=== PATIENT | female | born 1970 | race Caucasian/White ===

== ENCOUNTER 2023-08-21 11:02 | Emergency (ER) | payer MEDICARE, MEDICAID, SELFPAY ==
--- NOTE | ~2023-08-21 | XR_ITS ---
EXAMINATION: XR chest 2V CLINICAL INFORMATION: Shortness of breath COMPARISON: No prior chest x-ray available in our system for comparison at the time of this dictation. TECHNIQUE: XR chest 2V, 2 Views Lungs and [place]: Both lungs are clear. Pleura: Normal. Costophrenic angles are sharp. No pneumothorax. Heart: The heart is normal in size. Mediastinum: The mediastinum is within normal limits.. Bones: Skeletal structures included are normal for patient's age. XR/XR chest 2V IMPRESSION: No radiographic evidence of acute cardiopulmonary disease.
--- NOTE | ~2023-08-21 | CT_ITS ---
EXAMINATION: CT abdomen pelvis w IV con CLINICAL INFORMATION: Reason for Exam abd pain COMPARISON: No prior CT available for comparison. TECHNIQUE: Multidetector volumetric imaging was performed from the superior aspect of the liver through the pubic symphysis 85 mL of Omnipaque 350 injected Sagittal and coronal reformatted images were obtained on the technologist's workstation. This CT examination was performed using dose optimization techniques as appropriate, variously including the following: *Automated exposure control *Adjustment of mA and/or kV according to patient size (this includes techniques or standardized protocols for targeted exams where dose is matched to indication/reason for exam; i.e. extremities or head) *Use of iterative reconstruction technique DLP: 576 mGy-cm FINDINGS: LOWER THORAX: Included lung bases are clear. HEPATOBILIARY: There is hypodense structure in the right lobe of the liver segment 6 measures 1.8 x 1.7 cm not well characterized due to lack of contrast, could be a hemangioma versus other liver lesions. GALLBLADDER: Gallbladder unremarkable. SPLEEN: Spleen is normal in size. PANCREAS: No focal mass or ductal dilatation. STOMACH AND GASTROINTESTINAL TRACT: Stomach is grossly unremarkable. There is no bowel distention or thickening. No CT evidence of appendicitis. ADRENALS: No adrenal nodules. KIDNEYS/URETERS: There is a simple cyst left kidney 3.1 cm Bosniak class I, almost certainly benign, no follow-up recommended. URINARY BLADDER: Partially decompressed. PELVIC VISCERA: There is a complex soft tissue mass arising from or abutting the sigmoid colon and uterus measures 7.7 x 3.8 cm x 6.5 concerning for possible neoplasm which may have arise from the sigmoid colon or from the uterus versus less likely infection inflammatory process. There is mild surrounding fat stranding. PERITONEUM: No free air or fluid LYMPH NODES: Few mildly prominent mesenteric lymph nodes. No bulky adenopathy. Mildly enlarged preaortic lymph node 1 x 1.1 cm. VASCULAR:Abdominal aorta normal in size, no aneurysm found. BONES, ABDOMINAL WALL AND SOFT TISSUES: Age-appropriate changes of the spine and skeletal system, no destructive osteolytic or osteosclerotic bone lesion found CT/CT abdomen pelvis w IV con IMPRESSION: 1. There is a complex soft tissue mass arising from or abutting the sigmoid colon and uterus, roughly measures 7.7 x 3.8 x 6.5 cm concerning for possible neoplasm which may have arise from the SIGMOID COLON ADENOCARCINOMA VERSUS FROM THE UTERUS versus. No evidence of bowel obstruction. There is surrounding mild fat stranding suggesting serosal penetration. Recommended GI consultation, colonoscopy may be utilized for tissue biopsy. 2. Mildly enlarged preaortic lymph node 1 x 1.1 cm. 3. Hypodense structure in the right lobe of the liver segment 6 measures 1.8 cm not well characterized due to lack of contrast, could be a hemangioma versus other liver neoplastic lesions primary or metastatic. (Referring physician staff is being called, by physician staff assistance, to be alerted of the above critical findings and recommendations.) 08/21/2023 3:30 PM
[2023-08-21 11:47] VITALS: BP 134/81; PULSE 90; RESP 18; TEMP 37.1; O2SAT 97; BMI 36.2
--- NOTE | 2023-08-21 11:48 | ED.GENADULT ---
HPI - General Adult General Chief complaint: General Medical Stated complaint: SOB, fever Time Seen by Provider: 08/21/23 12:53 Source: patient Mode of arrival: ambulatory Limitations: no limitations History of Present Illness ED Provider: Adela Obrien PA-C HPI narrative: Patient is a 52 year old assigned female at with a history of DM presenting to the emergency department today with right sided flank pain, nausea, vomiting, and diarrhea. Patient states that over the last few months she has been having intermittent right sided flank pain, nausea, vomiting, and diarrhea. Patient states that she has been under a lot of pressure in her personal life and has not been managing her sugars effectively. Patient denies any dizziness, lightheadedness, blurry vision, double vision, loss of vision, chest pain, difficulty breathing, shortness of breath, back pain, night sweats, pain with urination, increased urinary frequency, increased urinary urgency, blood in her urine or stool, syncope or a near syncopal episode, recent trauma or falls, bowel incontinence, bladder incontinence, bowel retention, bladder retention, or any other complaints at this time. Onset (ago): month(s) Relieving factors: none Exacerbating factors: none Associated symptoms: fever/chills and nausea/vomiting Treatments prior to arrival: none Related Data Previous Rx's ?Medication ?Instructions ?Recorded cefuroxime axetil 250 mg tablet 250 mg PO BID 7 days #14 tabs 08/21/23 Allergies Allergy/AdvReac Type Severity Reaction Status Date / Time No Known Allergies Allergy Verified 08/21/23 11:51 Review of Systems Constitutional: Constitutional: Reports no additional constitutional complaints, Reports chills, Reports fever(s) and Denies night sweats Eyes: Eyes: Reports no additional eye complaints, Denies blurry vision, Denies change in vision, Denies diplopia, Denies eye discharge, Denies loss of vision and Denies eye pain ENT: Denies dizziness Cardiovascular: Cardiovascular: Reports no additional cardiovascular complaints, Denies chest pain, Denies lightheadedness, Denies Loss of Consciousness and Denies dyspnea Respiratory: Respiratory: Reports no additional respiratory complaints and Denies dyspnea Gastrointestinal: Gastrointestinal: Reports no additional gastrointestinal complaints, Reports abdominal pain, Denies melena, Denies hematochezia, Denies change in bowel habits, Denies change in stool character, Reports nausea and Reports vomiting Genitourinary: Genitourinary: Denies hematuria, Denies urinary frequency, Denies dysuria, Denies urinary incontinence, Denies urinary hesitancy and Denies urinary urgency Musculoskeletal: Musculoskeletal: Reports no additional musculoskeletal complaints, Denies numbness and Denies tingling Neurologic: Denies dizziness, Denies loss of vision, Denies numbness and Denies tingling Psychiatric: Psychiatric: Reports no additional psychiatric complaints Endocrine: Endocrine: Reports no additional endocrine complaints Hematologic/Lymphatic: Hematologic/Lymphatic: Reports no additional hematologic/lymphatic complaints Allergic/Immunologic: Allergic/Immunologic: Reports no additional allergic/immunologic complaints [facility] Past Medical History Attestation statement: The following information was validated with the patient. Source: old records reviewed and nursing notes reviewed Social History Social History Advance Directives: No Advance Directives Information Provided: Yes Physical Exam ED Vital Signs: Vital Signs - 24 hr 08/21/23 11:47 08/21/23 14:49 Temperature 98.8 F 98.4 F Pulse Rate 90 86 Respiratory Rate 18 18 Blood Pressure 134/81 122/62 Pulse Oximetry 97 97 Oxygen Delivery Method Room Air Room Air BMI result Body Mass Index 36.2 Const General: cooperative, no acute distress, alert and awake Nutritional Appearance: well nourished Orientation/consciousness: patient oriented x3 Limitations: no limitations HENMT Head: Yes normal to inspection and Yes atraumatic Ears: hearing grossly normal bilaterally and external ears normal General nose exam: Normal external nose present, no nasal discharge noted and no epistaxis Face and sinus: Yes normal facial exam, No abrasion and No laceration Mouth: Normal oral and palatal mucosa present, no drooling and no muffled voice Eyes General: appearance normal, both eyes and all related structures Periorbital: periorbital findings normal Eyelids: Yes eyelids normal Conjunctivae: conjunctivae normal Pupils: Equal, round and reactive pupils present EOM: EOMs intact bilaterally Neck Neck: Yes normal visual inspection, Yes full ROM and Yes no lymphadenopathy Chest Chest palpation & inspection: normal inspection of the chest Resp Effort & Inspection: normal respiratory effort and able to speak in complete sentences GI Inspection: Yes normal to inspection Palpation (GI): Soft to palpation, not firm, nontender and no guarding Neuro General: patient oriented x3 and moves all extremities Cranial nerves: Yes Equal, round and reactive pupils present Cognition (Neuro): normal cognition Motor exam (neuro): 5/5 motor strength present throughout Sensory Exam: Normal double simultaneous stimulation for sensation Coordination: [id number] test normal Extrem General: Yes normal to inspection, Yes full ROM and Yes capillary refill normal Psych Appearance: grossly normal Mental Status: mental status grossly normal Affect: normal affect Attitude: cooperative Thought process: Normal thought process present Thought content: Normal thought content present Insight: Good insight present (Psych) Course Course Course Narrative: RME- 52 year old female presents for evaluation of fevers for the last few months. She reports associated shortness of breath and diarrhea. Patient also endorses bloody stool for which she is being worked up for including a scheduled colonoscopy. Plan for labs including blood cultures, chest x-ray and viral swabs Medications Administered Discontinued Medications Generic Name Dose Route Start Last Admin Trade Name Freq PRN Reason Stop Dose Admin Ceftriaxone Sodium 1 gm/ 50 mls @ 100 mls/hr 08/21/23 14:01 08/21/23 14:47 Sodium Chloride IV 08/21/23 14:30 100 mls/hr ONCE ONE Administration Iohexol 85 ml 08/21/23 13:54 08/21/23 13:54 Iohexol 350 Mg/Ml 75 Ml Infus..Btl IV 08/21/23 13:55 85 ml ONCE ONE Administration Medical Decision Making Medical Decision Making [facility] Narrative: Patient is a 52 year old assigned female at with a history of DM presenting to the emergency department today with nausea, vomiting, diarrhea, intermittent abdominal pain, subjective fevers, and chills. Patient's physical exam was unremarkable. Patient's blood work was unremarkable. Patient's urine showed an acute infection. Patient's abdomen/pelvis CT showed a complex soft tissue mass arising from or abutting the sigmoid colon and uterus. Rad recommends GI follow up to further diagnose the mass. I explained my physical exam findings as well as all test results to the patient. I answered all questions asked by the patient. I stressed the importance of the patient taking her medication as prescribed. I stressed the importance of the patient following up with her primary care provider and a GI specialist. I stressed the importance of the patient returning to the emergency department immediately if her symptoms were to worsen or if she were to develop any dizziness, shortness of breath, difficulty breathing, chest pain, blurry vision, loss of vision, nausea, vomiting, abdominal pain, fever, chills, back pain, or any other complaints. Patient verbalized agreement and understanding with this treatment plan and discharge. Differential Diagnosis Differential Diagnoses: The differential diagnosis associated with the presentation includes Abdominal mass Colon cancer Uterine cancer UTI Admission/Observation Consideration of admission/observation: Escalation of care including admission/observation considered Patient would have been admitted to the hospital had her work up had any findings where hospital admission was appropriate and her clinical presentation warranted hospital admission. Lab Data [facility] Lab Attestation statement: I reviewed the patient's lab results. My interpretation of these results are in the [facility] Rationale portion of this note. 08/21/23 12:58 08/21/23 12:58 Labs: Lab Results 08/21/23 08/21/23 Range/Units 12:58 13:39 WBC 8.0 (4.8-10.8) X10*3/uL RBC 4.37 (4.20-5.50) X10*6/uL Hgb 10.0 L (12.0-16.0) g/dl Hct 31.6 L (37.0-47.0) % MCV 72.3 L (80.0-98.0) fL MCH 22.9 L (27.0-33.0) pg MCHC 31.6 (31.0-35.0) g/dl RDW 15.5 (11.0-16.0) % Plt Count 504 H (160-400) X10*3/uL MPV 8.6 L (9.4-12.3) fL Immature Gran % (Auto) 0.4 (0.0-0.4) % Neut % (Auto) 82.4 H (45-73) % Lymph % (Auto) 10.8 L (20-40) % [place] % (Auto) 5.6 (2-11) % Eos % (Auto) 0.4 (0-4) % Baso % (Auto) 0.4 (0-2) % Lymph # (Auto) 0.9 L (1.2-4.9) X10*3/uL [place] # (Auto) 0.5 (0.1-1.2) X10*3/uL Eos # (Auto) 0.0 (0.0-0.4) X10*3/uL Baso # (Auto) 0.0 (0.0-0.2) X10*3/uL Abs Immat Gran (auto) 0.03 (0.00-0.03) X10*3/uL Absolute Neuts (auto) 6.6 (2.0-8.3) x10*3/uL Absolute Nucleated RBC 0.000 (0.0-0.012) X10*3/uL Nucleated RBC % (auto) 0.0 (0.0-0.2) /100WBC Sodium 133 L (135-145) mmol/L Potassium 3.8 (3.3-5.1) mmol/L Chloride 99 (96-108) mmol/L Carbon Dioxide 24 (22-29) mmol/L Anion Gap 14 (12-20) BUN 14 (9-16) mg/dL Creatinine 0.83 (0.5-1.4) mg/dL Estim Creat Clear Calc 81.5 Estimated GFR > 60 Random Glucose 131 H (60-115) mg/dL Lactic Acid 0.8 (0.5-2.0) mmol/L Calcium 9.5 (8.4-10.2) mg/dL Total Bilirubin 0.4 (0.0-1.0) mg/dL AST 15 (5-31) U/L ALT 10 (0-31) U/L Alkaline Phosphatase 65 (39-117) U/L Total Protein 8.4 H (6.5-8.0) g/dL Albumin 3.9 (3.5-5.0) g/dL Lipase 15 (8-78) U/L Urine Color Dark Yellow Urine Appearance Turbid Urine pH 5.0 (5.0-9.0) Ur Specific [place] >= 1.030 H (1.005-1.025) Urine Protein 100 (2+) H (Neg-Trace) mg/dL Urine Glucose (UA) Negative (Negative) mg/dL Urine Ketones Trace (Negative) mg/dL Urine Blood Trace H (Negative) Urine Nitrite Negative (Negative) Ur Leukocyte Esterase Moderate (2+) H (Negative) Urine RBC 6-10 H (0-2) /HPF Urine WBC >50 H (0-5) /HPF Ur Squamous Epith Cells 6-10 (0-2) /HPF Urine Bacteria 4+ (None Seen) Hyaline Casts >20 (0-2) /LPF Influenza Type A (PCR) NEGATIVE (Negative) Influenza Type B (PCR) NEGATIVE (Negative) RSV RNA Qual (PCR) NEGATIVE (Negative) SARS-CoV-2 RNA (RT-PCR) NEGATIVE (Negative) Independent Interpretation I performed an independent interpretation of an: CT Scan Interpretation: My interpretation is in agreement with the radiologist's impression of this imaging study. EXAMINATION: CT abdomen pelvis w IV con CLINICAL INFORMATION: Reason for Exam abd pain COMPARISON: No prior CT available for comparison. TECHNIQUE: Multidetector volumetric imaging was performed from the superior aspect of the liver through the pubic symphysis 85 mL of Omnipaque 350 injected Sagittal and coronal reformatted images were obtained on the technologist's workstation. This CT examination was performed using dose optimization techniques as appropriate, variously including the following: *Automated exposure control *Adjustment of mA and/or kV according to patient size (this includes techniques or standardized protocols for targeted exams where dose is matched to indication/reason for exam; i.e. extremities or head) *Use of iterative reconstruction technique DLP: 576 mGy-cm FINDINGS: LOWER THORAX: Included lung bases are clear. HEPATOBILIARY: There is hypodense structure in the right lobe of the liver segment 6 measures 1.8 x 1.7 cm not well characterized due to lack of contrast, could be a hemangioma versus other liver lesions. GALLBLADDER: Gallbladder unremarkable. SPLEEN: Spleen is normal in size. PANCREAS: No focal mass or ductal dilatation. STOMACH AND GASTROINTESTINAL TRACT: Stomach is grossly unremarkable. There is no bowel distention or thickening. No CT evidence of appendicitis. ADRENALS: No adrenal nodules. KIDNEYS/URETERS: There is a simple cyst left kidney 3.1 cm Bosniak class I, almost certainly benign, no follow-up recommended. URINARY BLADDER: Partially decompressed. PELVIC VISCERA: There is a complex soft tissue mass arising from or abutting the sigmoid colon and uterus measures 7.7 x 3.8 cm x 6.5 concerning for possible neoplasm which may have arise from the sigmoid colon or from the uterus versus less likely infection inflammatory process. There is mild surrounding fat stranding. PERITONEUM: No free air or fluid LYMPH NODES: Few mildly prominent mesenteric lymph nodes. No bulky adenopathy. Mildly enlarged preaortic lymph node 1 x 1.1 cm. VASCULAR:Abdominal aorta normal in size, no aneurysm found. BONES, ABDOMINAL WALL AND SOFT TISSUES: Age-appropriate changes of the spine and skeletal system, no destructive osteolytic or osteosclerotic bone lesion found CT/CT abdomen pelvis w IV con IMPRESSION: 1. There is a complex soft tissue mass arising from or abutting the sigmoid colon and uterus, roughly measures 7.7 x 3.8 x 6.5 cm concerning for possible neoplasm which may have arise from the SIGMOID COLON ADENOCARCINOMA VERSUS FROM THE UTERUS versus. No evidence of bowel obstruction. There is surrounding mild fat stranding suggesting serosal penetration. Recommended GI consultation, colonoscopy may be utilized for tissue biopsy. 2. Mildly enlarged preaortic lymph node 1 x 1.1 cm. 3. Hypodense structure in the right lobe of the liver segment 6 measures 1.8 cm not well characterized due to lack of contrast, could be a hemangioma versus other liver neoplastic lesions primary or metastatic. (Referring physician staff is being called, by physician staff assistance, to be alerted of the above critical findings and recommendations.) 08/21/2023 3:30 PM KP Dictated By: Payal Melendez MD Signed By: Electronically signed by Payal Melendez MD 08/21/23 1531 Radiology Impression Discussion of test interpretation with radiology: I have reviewed the radiologist's reading. Prescription Management I considered prescription management with: Antibiotic (patient prescribed an antibiotic for UTI) Chronic Conditions Patient?s care impacted by: Diabetes Critical Care Time Critical Care Time Critical Care Time: Yes Total Critical Care Time: 38 Attestation: I spent 38 minutes of Critical Care Time with this patient. This does not include time spent on separately reported billable procedures. Discharge Plan Discharge Clinical Impression: Abdominal mass, Urinary tract infection Patient Disposition: Home, Self-Care Instructions: Urinary Tract Infection in Women (DC) Additional Instructions: Your CT scan of the abdomen/pelvis showed a 7.7x3.8x6.5 complex soft tissue mass that is abutting the sigmoid colon and uterus. The radiology suspect this is coming from the colon and recommends GI follow up. Follow up with your primary care provider and a GI specialist. Return to the emergency department immediately if your symptoms worsen or if you develop any dizziness, shortness of breath, difficulty breathing, chest pain, blurry vision, loss of vision, nausea, vomiting, abdominal pain, fever, chills, back pain, or any other complaints. Prescriptions: New cefuroxime axetil 250 mg tablet 250 mg PO BID 7 Days Qty: 14 0RF Referrals: [facility] [place] Gastroenterology Services [Provider Group] (Call to establish and follow up with a GI specialist to further differentiate your abdominal mass.) [facility] [place] [facility] [place]] (Call to establish and follow up with a primary care provider. If you already have a primary care provider, please follow up with them.) [facility] [place] [facility] [place] Group] [facility] [place] [facility] [place] Group] Print Language: Irish
[2023-08-21 13:04] LABS: MANUAL DIFF FLAG NO
[2023-08-21 13:05] LABS: Basophils Percent Auto 0.4 % (0-2); Eosinophils Percent Auto 0.4 % (0-4); Hematocrit 31.6 % (37.0-47.0); Imm Gran Abs Auto 0.03 X10*3/uL (0.00-0.03); Imm Gran Pct Auto 0.4 % (0.0-0.4); Lymphocytes Absolute Auto 0.9 X10*3/uL (1.2-4.9); Lymphocytes Percent Auto 10.8 % (20-40); Mean Corpuscular HGB Conc 31.6 g/dl (31.0-35.0); Mean Corpuscular Hemoglobin 22.9 pg (27.0-33.0); Mean Corpuscular Volume 72.3 fL (80.0-98.0); Mean Platelet Volume 8.6 fL (9.4-12.3); Monocytes Absolute Auto 0.5 X10*3/uL (0.1-1.2); Monocytes Percent Auto 5.6 % (2-11); Neutrophils Absolute Auto 6.6 x10*3/uL (2.0-8.3); Neutrophils Percent Auto 82.4 % (45-73); Platelet Count 504 X10*3/uL (160-400); Red Blood Count 4.37 X10*6/uL (4.20-5.50); Red Cell Distribution Width 15.5 % (11.0-16.0)
[2023-08-21 13:16] LABS: Lactic Acid 0.8 mmol/L (0.5-2.0)
[2023-08-21 13:21] LABS: Alanine Aminotransferase 10 U/L (0-31); Albumin Level 3.9 g/dL (3.5-5.0); Alkaline Phosphatase 65 U/L (39-117); Anion Gap 14 (12-20); Aspartate Amino Transferase 15 U/L (5-31); Bilirubin Total 0.4 mg/dL (0.0-1.0); Blood Urea Nitrogen 14 mg/dL (9-16); Calcium 9.5 mg/dL (8.4-10.2); Carbon Dioxide 24 mmol/L (22-29); Chloride 99 mmol/L (96-108); Creatinine Clr Calc Pharmacy 81.5; Estimated Glomerular Filt Rate > 60; Glucose Random 131 mg/dL (60-115); Lipase 15 U/L (8-78); Potassium 3.8 mmol/L (3.3-5.1); Sodium 133 mmol/L (135-145); Total Protein 8.4 g/dL (6.5-8.0)
[2023-08-21 13:47] LABS: Appearance Urine Turbid; Color Urine Dark Yellow; Glucose Urine UA Negative (Negative); Leukocyte Esterase Urine Moderate (2+) (Negative); Nitrite Urine Negative (Negative); Specific Gravity - Urine >= 1.030 (1.005-1.025); UMIC TRIGGER UACC YES; Urine Blood Trace (Negative); Urine Ketones Trace mg/dL (Negative); Urine Protein 100 (2+) mg/dL (Neg-Trace)
[2023-08-21 13:52] LABS: Influenza A PCR NEGATIVE (Negative); Influenza B PCR NEGATIVE (Negative); Resp Syncy Virus RNA Qual PCR NEGATIVE (Negative); SARS COV2 PCR INHOUSE NEGATIVE (Negative)
[2023-08-21] MEDS: iohexoL 350 MG/ML 75 ML INFUS..BTL 85 ML IV (13:54)
[2023-08-21 13:59] LABS: Bacteria Urine 4+ (None Seen); Hyaline Casts Urine >20 /LPF (0-2); UACC Culture Trigger YES; WBC Urine >50 /HPF (0-5)
[2023-08-21] MEDS: cefTRIAXone sodium 1 GM in 0.9 % Sodium Chloride 50 ML IV (14:47)
[2023-08-21 14:49] VITALS: BP 122/62; PULSE 86; RESP 18; TEMP 36.9; O2SAT 97
[2023-08-21 16:52] VITALS: BP 123/59; PULSE 87; RESP 16; TEMP 37.1; O2SAT 97
== END 2023-08-21 16:52 | disposition home or self-care (01) ==
PROVIDERS: Physician Assistant; Emergency Provider Student in an Organized Health Care Education/Training Program
DX: R19.09 Other intra-abdominal and pelvic swelling, mass and lump (principal); N39.0 Urinary tract infection, site not specified; R06.02 Shortness of breath; R10.9 Unspecified abdominal pain; R11.2 Nausea with vomiting, unspecified; R19.7 Diarrhea, unspecified; Z03.818 Encounter for observation for suspected exposure to other biological agents ruled out
CPT/HCPCS: 0241U; 71046; 74177; 80053; 81001; 83605; 83690; 85025; 87040; 87086; 96365; 99283; 99284; J0696; Q9967

== ENCOUNTER 2023-09-05 09:20 | Emergency (ER) | payer MEDICARE, MEDICAID, SELFPAY ==
--- NOTE | ~2023-09-05 | CT_ITS ---
EXAMINATION: CT ABDOMEN AND PELVIS WITH CONTRAST CLINICAL INFORMATION: Abdominal pain. Possible pyelonephritis. COMPARISON: Previous CT of the abdomen and pelvis and a 20 09/15/2023 TECHNIQUE: Multidetector volumetric images were obtained from the superior aspect of the liver through the pubic symphysis following administration 85 mL of Omnipaque 350 intravenous contrast. Sagittal and coronal reformatted images were obtained on the technologist's workstation. Oral contrast: Yes This CT examination was performed using dose optimization techniques as appropriate, variously including the following: *Automated exposure control *Adjustment of mA and/or kV according to patient size (this includes techniques or standardized protocols for targeted exams where dose is matched to indication/reason for exam; i.e. extremities or head) *Use of iterative reconstruction technique DLP: 668 mGy-cm FINDINGS: LUNG BASES: The visualized lung bases are unremarkable. LIVER, GALLBLADDER, AND BILIARY TREE: Lauri's lobe of the liver. 2 cm low-attenuation lesion in the inferior posterior segment of the right lobe of the liver unchanged. No biliary duct dilatation. Normal gallbladder.. PANCREAS: Unremarkable. SPLEEN: Unremarkable. ADRENAL GLANDS: Unremarkable. KIDNEYS AND URETERS: The kidneys are normal in size, shape, and attenuation. No hydronephrosis, hydroureter, or calculi seen. Left renal cyst. No evidence of pyelonephritis. No perinephric stranding. BLADDER: Slight mass effect on the dome of the bladder from pelvic mass. GASTROINTESTINAL TRACT: There is abnormal heterogeneous masslike appearance of the sigmoid colon which is inseparable from the uterus. There are areas appear lower in attenuation questionable for cystic or necrotic change. There is stranding of the surrounding fat. There are surrounding lymph nodes. It is uncertain whether this represents a primary sigmoid colon or uterine process. Neoplastic as well as an infectious process should be considered. There is constipation. There are fluid-filled slightly distended loops of distal small bowel and proximal large bowel/cecum probably representing reactive ileus. No free air. No ascites. ABDOMINAL WALL: No significant hernia is appreciated. LYMPH NODES: Enlarged lymph nodes in the pelvis adjacent to the sigmoid colon/uterine mass, largest measuring 1.2 cm and retroperitoneal lymphadenopathy in the lower abdomen and pelvis, largest aortocaval lymph node measuring 1 cm and bi lateral pelvic sidewall lymph nodes measuring 1 cm. VASCULAR: Unremarkable. PELVIC VISCERA: As above OSSEOUS STRUCTURES: Unremarkable. CT/CT abdomen pelvis w IV con IMPRESSION: No evidence of pyelonephritis. Stable heterogeneous pelvic mass involving the sigmoid colon and uterus, surrounding fat stranding and lymphadenopathy. Neoplastic and infectious process should be considered. It is uncertain whether origin is in the sigmoid colon or uterus. Constipation. Fluid-filled small and proximal large bowel probably representing reactive ileus. Enlarged Lauri's lobe of liver. 2 cm stable low-attenuation lesion in the inferior right lobe of the liver. Further characterization with MRI should be considered. Fleischner guidelines were followed.
[2023-09-05 09:46] VITALS: BP 121/63; PULSE 104; RESP 18; TEMP 37.1; O2SAT 99; BMI 37.1
[2023-09-05 10:09] LABS: MANUAL DIFF FLAG NO
[2023-09-05 10:11] LABS: Appearance Urine Turbid; Color Urine Dark Yellow; Glucose Urine UA Negative (Negative); Leukocyte Esterase Urine Large (3+) (Negative); Nitrite Urine Negative (Negative); PH 5.5 (5.0-9.0); Specific Gravity - Urine 1.025 (1.005-1.025); UMIC TRIGGER UACC YES; Urine Blood Small (1+) (Negative); Urine Ketones Trace mg/dL (Negative); Urine Protein 100 (2+) mg/dL (Neg-Trace)
[2023-09-05 10:12] LABS: Basophils Absolute Auto 0.1 X10*3/uL (0.0-0.2); Basophils Percent Auto 0.3 % (0-2); Eosinophils Percent Auto 0.1 % (0-4); Hematocrit 32.4 % (37.0-47.0); Hemoglobin 10.5 g/dl (12.0-16.0); Imm Gran Pct Auto 0.7 % (0.0-0.4); Lymphocytes Percent Auto 6.6 % (20-40); Mean Corpuscular HGB Conc 32.4 g/dl (31.0-35.0); Mean Corpuscular Hemoglobin 23.4 pg (27.0-33.0); Mean Corpuscular Volume 72.3 fL (80.0-98.0); Mean Platelet Volume 8.9 fL (9.4-12.3); Monocytes Absolute Auto 0.6 X10*3/uL (0.1-1.2); Monocytes Percent Auto 3.8 % (2-11); Neutrophils Absolute Auto 13.4 x10*3/uL (2.0-8.3); Neutrophils Percent Auto 88.5 % (45-73); Platelet Count 410 X10*3/uL (160-400); Red Blood Count 4.48 X10*6/uL (4.20-5.50); Red Cell Distribution Width 17.4 % (11.0-16.0); White Blood Count 15.2 X10*3/uL (4.8-10.8)
[2023-09-05 10:26] LABS: Bacteria Urine 4+ (None Seen); Hyaline Casts Urine 0-2 /LPF (0-2); UACC Culture Trigger YES; WBC Urine >50 /HPF (0-5)
[2023-09-05 10:40] LABS: Alanine Aminotransferase 10 U/L (0-31); Alkaline Phosphatase 64 U/L (39-117); Anion Gap 17 (12-20); Aspartate Amino Transferase 14 U/L (5-31); Bilirubin Total 0.9 mg/dL (0.0-1.0); Blood Urea Nitrogen 14 mg/dL (9-16); Calcium 9.8 mg/dL (8.4-10.2); Carbon Dioxide 23 mmol/L (22-29); Chloride 97 mmol/L (96-108); Creatinine Clr Calc Pharmacy 77.1; Estimated Glomerular Filt Rate > 60; Glucose Random 156 mg/dL (60-115); Potassium 3.9 mmol/L (3.3-5.1); Sodium 133 mmol/L (135-145); Total Protein 8.7 g/dL (6.5-8.0)
[2023-09-05 12:18] LABS: Influenza A PCR NEGATIVE (Negative); Influenza B PCR NEGATIVE (Negative); Resp Syncy Virus RNA Qual PCR NEGATIVE (Negative); SARS COV2 PCR INHOUSE NEGATIVE (Negative)
[2023-09-05 15:51] VITALS: BP 119/75; PULSE 105; RESP 18; TEMP 36.9; O2SAT 97
--- NOTE | 2023-09-05 16:08 | ED.FEMALEGU ---
HPI - Female Genitourinary General Chief complaint: Urogenital-Female Stated complaint: Fever/Chills/Body pain Time Seen by Provider: 09/05/23 16:01 Source: patient, family (daughter) and RN notes reviewed Mode of arrival: ambulatory Limitations: no limitations History of Present Illness ED Provider: AD PEREZ PA-C HPI Narrative: 52-year-old female presents to the ED today for evaluation of fevers (T-max a 100.7?F), myalgias, chills, nausea, vomiting and lower back pain x3 days. She reports associated vaginal itching/burning which began yesterday. Reports history of recurrent UTIs as a child. Denies known sick contacts. Denies abdominal pain, diarrhea, constipation, hematuria. Patient tells me she was recently diagnosed with an abdominal mass along with a urinary tract infection. She finished the course of antibiotics and has had the appropriate follow-up for abdominal mass. Related Data Previous Rx's ?Medication ?Instructions ?Recorded cefuroxime axetil 250 mg tablet 250 mg PO BID 7 days #14 tabs 08/21/23 ciprofloxacin HCl 500 mg tablet 500 mg PO Q12H #14 tabs 09/05/23 tramadol 50 mg tablet 50 mg PO Q8H PRN pain #12 tabs 09/05/23 Allergies Allergy/AdvReac Type Severity Reaction Status Date / Time No Known Allergies Allergy Verified 09/05/23 09:51 Review of Systems Review of Systems: Constitutional: No chills, fatigue, night sweats, weight changes, +Fevers ENT/Mouth: No ear pain, hearing loss, nasal congestion, sinus pain, rhinorrhea, sore throat Eyes: No eye pain, swelling, redness, vision changes, discharge Cardio: No chest pain, palpitations, CLARKE, orthopnea, peripheral edema Pulm: No SOB, cough, sputum, wheezing, dyspnea, hemoptysis GI: No nausea, vomiting, hematemesis, abdominal pain, diarrhea, constipation, hematochezia, melena : No irregular bleeding, frequency, urgency, hesitancy, hematuria, flank pain, urinary flow changes, urinary incontinence or retention, +vaginal itching, +dysuria MSK: No back pain, neck pain, joint pain, +myalgias, +back pain Skin: No lesions, rashes Neuro: No weakness, numbness, paresthesias, LOC, dizziness, headache Psych: No anxiety/panic, depression, SI/HI, AH/VH All other systems reviewed and are negative. [facility] Past Medical History Attestation statement: The following information was validated with the patient. Source: old records reviewed and nursing notes reviewed Social History Social History Smoked in Last 30 Days: No Advance Directives: No Advance Directives Information Provided: Yes Do you have a plan to hurt others: No Plan Physical Exam Vital Signs: Vital Signs: Last Vital Signs Temp 99 F 09/05/23 22:49 Pulse 95 09/05/23 22:49 Resp 17 09/05/23 22:49 BP 123/54 L 09/05/23 22:49 Pulse Ox 97 09/05/23 22:49 O2 Del Method Room Air 09/05/23 19:46 BMI result Body Mass Index 37.1 Tachycardic, vitals otherwise WNL Const: General: cooperative, healthy appearing, comfortable and no acute distress Orientation/consciousness: patient oriented x3 Limitations: no limitations HEENT: Head: Yes normal to inspection, Yes No palpable skull fracture present, Yes normocephalic and Yes atraumatic Eyes: General: appearance normal, both eyes and all related structures Conjunctivae: conjunctivae normal Sclerae: sclerae normal Pupils: Equal, round and reactive pupils present Neck: Neck: Yes normal visual inspection, Yes full ROM, Yes no lymphadenopathy and Yes no meningeal signs Resp: Effort & Inspection: normal respiratory effort and able to speak in complete sentences Auscultation: clear to auscultation bilaterally Cardio: Rate: regular rate Rhythm: regular rhythm GI: Other: Obese abdomen, soft, nondistended, nontender to palpation, no rebound tenderness or guarding. Normoactive bowel sounds x4. No palpable masses. : General: Yes no CVA tenderness Back/Spine/Pelvis: Other: No midline spinous tenderness or step-off deformity. No paraspinal muscle tenderness to palpation, no palpable warmth or mass. Back: no CVA tenderness Skin: General skin exam: no rashes or lesions noted Neuro: General: patient oriented x3, gait normal and no meningeal signs Cranial nerves: Yes Equal, round and reactive pupils present Course Course Course Narrative: 1650-- CBC with leukocytosis to 15.2 with left shift. Chronic anemia when compared to priors. H&H 10.5/32.4. Chemistry showing hyponatremia to 133 > patient receiving IV fluids. Normal renal function random glucose 156. Lactic acid WNL at 0.9. She has tested negative for COVID, flu, RSV. Urine showing small amount of blood, large leukocyte esterase, 3-5 urine RBCs and over 50 WBCs. There is 4+ bacteria and 6-[address] scan of abdomen/pelvis with contrast ordered by triage provider due to concern for pyelonephritis. She is tachy to 105 however is afebrile. There is no concern for sepsis at this time. > she is receiving ceftriaxone, morphine, Zofran and fluids via IV in the meantime. > awaiting CT results I did review CT abdomen/pelvis obtained on 08/21/2023 showing complex soft tissue mass arising from or abutting the sigmoid colon and uterus, roughly measuring 7.7 x 3.8 x 6.5 cm, concerning for possible neoplasm which may have arisen from sigmoid colon adenocarcinoma versus uterus. At that time, no evidence of bowel obstruction however there is mild fat stranding suggestive of serosal penetration. There was also noted to be a hypodense structure in the right lobe of the liver measuring 1.8 cm, consistent with hemangioma versus liver neoplasm. >> I did discuss all of these results with patient. She is well aware of all imaging findings. She is following with [facility] along with insurance verify rep. She recently had a pelvic ultrasound done and has a colonoscopy scheduled for September 08. 1850-- Patient stable at the end of my shift. Sign out given to ALEX Chapman pending CT abd/pelvis results and disposition. 2099 --> IAdela PA-C - received this patient on sign out pending CT results. Patient's CT is still pending a reading at this time. Patient signed out to DIGNA Noble. Reevaluation(s) Reevaluation #1: 52-year-old female presents for evaluation of fevers, body aches, lower back pain with burning with urination. She also was found to have an abdominal mass [address] scan. She just finished a course of cefuroxime for UTI. She appears to still have UTI which may be related to contamination but given that she is complaining of symptoms, we will treat with ciprofloxacin b.i.d. x7 days. Time: 22:39 Medications Administered Discontinued Medications Generic Name Dose Route Start Last Admin Trade Name Ayesha PRN Reason Stop Dose Admin Ceftriaxone Sodium 1 gm/ 50 mls @ 100 mls/hr 09/05/23 15:50 09/05/23 17:20 Sodium Chloride IV 09/05/23 16:19 100 mls/hr ONCE ONE Administration Sodium Chloride 1,000 mls @ 999 mls/hr 09/05/23 16:15 09/05/23 17:20 Ns IV 09/05/23 17:15 999 mls/hr .Q1H1M TARIQ Administration Iohexol 100 ml 09/05/23 17:19 09/05/23 17:20 Iohexol 350 Mg/Ml 100 Ml Infus..Btl IV 09/05/23 17:20 85 ml ONCE ONE Administration Morphine Sulfate 2 mg 09/05/23 16:16 09/05/23 17:18 Morphine Sulfate 2 Mg/Ml Cartridge IVPUSH 09/05/23 16:17 2 mg ONCE ONE Administration Protocol Ondansetron HCl 4 mg 09/05/23 15:53 09/05/23 17:18 Ondansetron Hcl 4 Mg/2 Ml Vial IVPUSH 09/05/23 15:54 4 mg ONCE ONE Administration Medical Decision Making Medical Decision Making [facility] Narrative: 52-year-old female presents to the ED today for evaluation of fevers (T-max a 100.7?F), myalgias, chills, nausea, vomiting and lower back pain x3 days. Patient tachycardic to 105, vitals otherwise WNL. Afebrile. She is nontoxic-appearing and in no acute distress. On exam, obese abdomen, nontender to palpation. No palpable masses. No rebound tenderness or guarding. Normoactive bowel sounds x4. No CVAT bilaterally. Differential diagnosis includes gastroenteritis, viral syndrome, urinary tract infection, renal colic, nephrolithiasis, pyelonephritis, diverticulitis. Plan for labs, viral serology, UA, imaging, and re-evaluation. Differential Diagnosis Differential Diagnoses: The differential diagnosis associated with the presentation includes as above. Admission/Observation Consideration of admission/observation: Escalation of care including admission/observation considered Admission considered on presentation. Lab Data MDM Lab Attestation statement: I reviewed the patient's lab results. as above. 09/05/23 10:02 09/05/23 10:02 Labs: Lab Results 09/05/23 09/05/23 09/05/23 Range/Units 10:02 10:03 16:20 WBC 15.2 H (4.8-10.8) X10*3/uL RBC 4.48 (4.20-5.50) X10*6/uL Hgb 10.5 L (12.0-16.0) g/dl Hct 32.4 L (37.0-47.0) % MCV 72.3 L (80.0-98.0) fL MCH 23.4 L (27.0-33.0) pg MCHC 32.4 (31.0-35.0) g/dl RDW 17.4 H (11.0-16.0) % Plt Count 410 H (160-400) X10*3/uL MPV 8.9 L (9.4-12.3) fL Immature Gran % (Auto) 0.7 H (0.0-0.4) % Neut % (Auto) 88.5 H (45-73) % Lymph % (Auto) 6.6 L (20-40) % Stevens % (Auto) 3.8 (2-11) % Eos % (Auto) 0.1 (0-4) % Baso % (Auto) 0.3 (0-2) % Lymph # (Auto) 1.0 L (1.2-4.9) X10*3/uL Stevens # (Auto) 0.6 (0.1-1.2) X10*3/uL Eos # (Auto) 0.0 (0.0-0.4) X10*3/uL Baso # (Auto) 0.1 (0.0-0.2) X10*3/uL Abs Immat Gran (auto) 0.10 H (0.00-0.03) X10*3/uL Absolute Neuts (auto) 13.4 H (2.0-8.3) x10*3/uL Absolute Nucleated RBC 0.000 (0.0-0.012) X10*3/uL Nucleated RBC % (auto) 0.0 (0.0-0.2) /100WBC Sodium 133 L (135-145) mmol/L Potassium 3.9 (3.3-5.1) mmol/L Chloride 97 (96-108) mmol/L Carbon Dioxide 23 (22-29) mmol/L Anion Gap 17 (12-20) BUN 14 (9-16) mg/dL Creatinine 0.89 (0.5-1.4) mg/dL Estim Creat Clear Calc 77.1 Estimated GFR > 60 Random Glucose 156 H (60-115) mg/dL Lactic Acid 0.9 (0.5-2.0) mmol/L Calcium 9.8 (8.4-10.2) mg/dL Total Bilirubin 0.9 (0.0-1.0) mg/dL AST 14 (5-31) U/L ALT 10 (0-31) U/L Alkaline Phosphatase 64 (39-117) U/L Total Protein 8.7 H (6.5-8.0) g/dL Albumin 4.0 (3.5-5.0) g/dL Lipase 13 (8-78) U/L Urine Color Dark Yellow Urine Appearance Turbid Urine pH 5.5 (5.0-9.0) Ur Specific [place] 1.025 (1.005-1.025) Urine Protein 100 (2+) H (Neg-Trace) mg/dL Urine Glucose (UA) Negative (Negative) mg/dL Urine Ketones Trace (Negative) mg/dL Urine Blood Small (1+) H (Negative) Urine Nitrite Negative (Negative) Ur Leukocyte Esterase Large (3+) H (Negative) Urine RBC 3-5 H (0-2) /HPF Urine WBC >50 H (0-5) /HPF Ur Squamous Epith Cells 6-10 (0-2) /HPF Urine Bacteria 4+ (None Seen) Hyaline Casts 0-2 (0-2) /LPF Urine Test NEGATIVE (NEGATIVE) Influenza Type A (PCR) NEGATIVE (Negative) Influenza Type B (PCR) NEGATIVE (Negative) RSV RNA Qual (PCR) NEGATIVE (Negative) SARS-CoV-2 RNA (RT-PCR) NEGATIVE (Negative) Independent Interpretation I performed an independent interpretation of an: CT Scan Interpretation: I reviewed CT abdomen/pelvis obtained on 08/21/2023 showing abdominal mass, agree with radiologist's interpretation. Radiology Impression Discussion of test interpretation with radiology: I have reviewed the radiologist's reading. Radiologist Impression: EXAMINATION: CT abdomen pelvis w IV con CLINICAL INFORMATION: Reason for Exam abd pain COMPARISON: No prior CT available for comparison. TECHNIQUE: Multidetector volumetric imaging was performed from the superior aspect of the liver through the pubic symphysis 85 mL of Omnipaque 350 injected Sagittal and coronal reformatted images were obtained on the technologist's workstation. This CT examination was performed using dose optimization techniques as appropriate, variously including the following: *Automated exposure control *Adjustment of mA and/or kV according to patient size (this includes techniques or standardized protocols for targeted exams where dose is matched to indication/reason for exam; i.e. extremities or head) *Use of iterative reconstruction technique DLP: 576 mGy-cm FINDINGS: LOWER THORAX: Included lung bases are clear. HEPATOBILIARY: There is hypodense structure in the right lobe of the liver segment 6 measures 1.8 x 1.7 cm not well characterized due to lack of contrast, could be a hemangioma versus other liver lesions. GALLBLADDER: Gallbladder unremarkable. SPLEEN: Spleen is normal in size. PANCREAS: No focal mass or ductal dilatation. STOMACH AND GASTROINTESTINAL TRACT: Stomach is grossly unremarkable. There is no bowel distention or thickening. No CT evidence of appendicitis. ADRENALS: No adrenal nodules. KIDNEYS/URETERS: There is a simple cyst left kidney 3.1 cm Bosniak class I, almost certainly benign, no follow-up recommended. URINARY BLADDER: Partially decompressed. PELVIC VISCERA: There is a complex soft tissue mass arising from or abutting the sigmoid colon and uterus measures 7.7 x 3.8 cm x 6.5 concerning for possible neoplasm which may have arise from the sigmoid colon or from the uterus versus less likely infection inflammatory process. There is mild surrounding fat stranding. PERITONEUM: No free air or fluid LYMPH NODES: Few mildly prominent mesenteric lymph nodes. No bulky adenopathy. Mildly enlarged preaortic lymph node 1 x 1.1 cm. VASCULAR:Abdominal aorta normal in size, no aneurysm found. BONES, ABDOMINAL WALL AND SOFT TISSUES: Age-appropriate changes of the spine and skeletal system, no destructive osteolytic or osteosclerotic bone lesion found CT/CT abdomen pelvis w IV con IMPRESSION: 1. There is a complex soft tissue mass arising from or abutting the sigmoid colon and uterus, roughly measures 7.7 x 3.8 x 6.5 cm concerning for possible neoplasm which may have arise from the SIGMOID COLON ADENOCARCINOMA VERSUS FROM THE UTERUS versus. No evidence of bowel obstruction. There is surrounding mild fat stranding suggesting serosal penetration. Recommended GI consultation, colonoscopy may be utilized for tissue biopsy. 2. Mildly enlarged preaortic lymph node 1 x 1.1 cm. 3. Hypodense structure in the right lobe of the liver segment 6 measures 1.8 cm not well characterized due to lack of contrast, could be a hemangioma versus other liver neoplastic lesions primary or metastatic. (Referring physician staff is being called, by physician staff assistance, to be alerted of the above critical findings and recommendations.) Independent Historian Clinical information obtained from an independent historian. History obtained from or confirmed by: Other (daughter) External Record Review External record reviewed: Inpatient record Prescription Management I considered prescription management with: Pain Medication and Antibiotic Social Determinants Patient?s care significantly limited by Social Determinants of Health including: Other Social Determinant of Health Critical Care Time Critical Care Time Critical Care Time: Yes Total Critical Care Time: 40 Attestation: IV morphine with re-evaluation Discharge Plan Discharge Clinical Impression: Urinary tract infection, Intraabdominal mass Patient Disposition: Home, Self-Care Instructions: Urinary Tract Infection in Women (ED) Additional Instructions: Patient's CT scan did not show any evidence of pyelonephritis or obstructive uropathy. She is complaining of lower abdominal pain/back pain that may be related to the soft tissue mass. Her urine does appear to show acute UTI as well. We will treat with ciprofloxacin b.i.d. x7 days and will discharge the patient with tramadol for pain. She will follow-up with her outpatient providers Prescriptions: New ciprofloxacin HCl 500 mg tablet 500 mg PO Q12H Qty: 14 0RF tramadol 50 mg tablet 50 mg PO Q8H PRN (Reason: pain) Qty: 12 0RF No Action cefuroxime axetil 250 mg tablet 250 mg PO BID 7 Days Qty: 14 0RF Interventions: ED Discharge Assessment Last Done: 09/05/23 22:49 Discharge Date/Time: 09/05/23 22:55 Print Language: Indonesian
[2023-09-05 16:44] LABS: Lactic Acid 0.9 mmol/L (0.5-2.0)
[2023-09-05 17:04] LABS: UPreg QC Valid YES; Urine Pregnancy NEGATIVE (NEGATIVE)
[2023-09-05 17:17] LABS: Lipase 13 U/L (8-78)
[2023-09-05] MEDS: ondansetron HCL 4 MG/2 ML VIAL IVPUSH (17:18)
[2023-09-05] MEDS: Morphine Sulfate 2 MG/ML CARTRIDGE IVPUSH (17:18)
[2023-09-05] MEDS: iohexoL 350 MG/ML 100 ML INFUS..BTL IV (17:20)
[2023-09-05] MEDS: 0.9 % Sodium Chloride 1,000 ML 999 ML IV (17:20)
[2023-09-05] MEDS: cefTRIAXone sodium 1 GM in 0.9 % Sodium Chloride 50 ML IV (17:20)
--- NOTE | 2023-09-05 17:25 | PC.NURSE ---
this nurse took over care from [facility], pt was in ct scan and unable to administer medications, pt has since returned, pt is a&ox3, vitals previously stable, pt states she has generalized pain 8/10, iv previously inserted, labs drawn with bcx2, pt medicated for pain, ivf started per order, iv abx running per order, call son within reach, will continue to monitor
[2023-09-05 19:46] VITALS: BP 123/54; PULSE 95; RESP 17; TEMP 37.2; O2SAT 97
[2023-09-05 22:49] VITALS: BP 123/54; PULSE 95; RESP 17; TEMP 37.2; O2SAT 97
== END 2023-09-05 22:55 | disposition home or self-care (01) ==
PROVIDERS: Physician Assistant Medical; Emergency Provider Internal Medicine
DX: N39.0 Urinary tract infection, site not specified (principal); R19.00 Intra-abdominal and pelvic swelling, mass and lump, unspecified site; E87.1 Hypo-osmolality and hyponatremia
CPT/HCPCS: 0241U; 36415; 74177; 80053; 81001; 81025; 83605; 83690; 85025; 87040; 87086; 96374; 96375; 99284; J0696; J2270; J2405; Q9967